=== PATIENT | male | born 1995 | race Hispanic/Latino ===

== ENCOUNTER 2018-01-22 22:21 | Emergency (ER) | payer OTHER ==
[2018-01-22 22:30] VITALS: BP 121/73; PULSE 70; RESP 16; TEMP 97.9; O2SAT 99
--- NOTE | 2018-01-22 23:17 | ED PDOC ---
HPI: Back Time Seen by Provider: 01/22/18 22:31 Chief Complaint (Nursing): Back Pain Chief Complaint (Provider): Back Pain History Per: Patient History/Exam Limitations: no limitations Onset/Duration Of Symptoms: Hrs (since 4pm) Current Symptoms Are (Timing): Still Present Severity: Mild Pain Scale Rating Of: 5 Associated Symptoms: None Exacerbating Factor(s): Movement, Standing Additional Complaint(s): patient is a 22 year old male with no significant past medical history who presents to the ED for evaluation of left lower back pain. 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 Denies radiation of the pain. Patient reports a history of similar pain due to fencing injuries, but states the pain has resolved spontaneously in the past. Patient took no medication for symptoms prior to arrival. Patient denies: saddle anesthesia, recent fever, chills, trauma, falls, abdominal pain, chest pain, N/V/D, incontinence, urinary symptoms. PMD: unknown Past Medical History Reviewed: Historical Data, Nursing Documentation, Vital Signs Vital Signs: Last Vital Signs Temp 97.9 F 01/22/18 22:27 Pulse 70 01/22/18 22:27 Resp 16 01/22/18 22:27 BP 121/73 01/22/18 22:27 Pulse Ox 99 01/22/18 22:27 - Medical History PMH: No Chronic Diseases - Surgical History Surgical History: No Surg Hx - Family History Family History: States: Unknown Family Hx - Social History Current smoker - smoking cessation education provided: No Alcohol: None Drugs: Denies - Home Medications Home Medications: Ambulatory Orders Medication Instructions Recorded Cyclobenzaprine [Cyclobenzaprine 10 mg PO Q8 PRN #12 tab 01/22/18 HCl] Naproxen 500 mg PO BID PRN #20 tab 01/22/18 - Allergies Allergies/Adverse Reactions: Allergies Allergy/AdvReac Type Severity Reaction Status Date / Time No Known Allergies Allergy Verified 01/22/18 22:27 Review of Systems ROS Statement: Except As Marked, All Systems Reviewed And Found Negative Musculoskeletal: Positive for: Back Pain Physical Exam - Reviewed Nursing Documentation Reviewed: Yes Vital Signs Reviewed: Yes - Physical Exam Appears: Positive for: Well, Non-toxic, No Acute Distress Head Exam: Positive for: NORMOCEPHALIC Skin: Positive for: Normal Color, Warm, Dry Eye Exam: Positive for: EOMI, PERRL ENT: Positive for: Other (Mucus membranes moist. Airway patent (-) stridor.) Neck: Positive for: Painless ROM, Supple Cardiovascular/Chest: Positive for: Regular Rate, Rhythm Respiratory: Positive for: Normal Breath Sounds. Negative for: Decreased Breath Sounds, Accessory Muscle Use, Respiratory Distress Gastrointestinal/Abdominal: Positive for: Soft. Negative for: Tenderness, Distended, Guarding Back: Positive for: Other (left paralumbar tenderness (-) spasm. Straight leg raise (-) bilaterally. ). Negative for: L CVA Tenderness, R CVA Tenderness, Vertebral Tenderness Extremity: Positive for: Normal ROM. Negative for: Calf Tenderness Neurologic/Psych: Positive for: Alert, Oriented (x3), Gait (steady in ED). Negative for: Motor/Sensory Deficits - ECG O2 Sat by Pulse Oximetry: 99 (RA) Pulse Ox Interpretation: Normal Medical Decision Making Medical Decision Making: Clinical Impression: Acute back pain/strain Plan: - Toradol 30mg IM - Flexeril 10mg PO (patient is not driving home) - Re-evaluation 2340 On re-evaluation, patient reports improvement of symptoms. On exam, patient remains AAOx3, in no acute distress. On exam, neck is supple, lungs CTA, cardiac RRR, abdomen is soft and non-tender, neuro exam shows no focal findings. VSS, stable for discharge. Diagnostic results d/w the patient in great detail. Dx of acute back pain/ strain d/w the patient. Based on history, exam and diagnostic results plan will be for discharge and outpatient follow up. Advised to follow up with primary care physician in 1-2 days without fail. Advised to take medication as prescribed. Return to the emergency room at any time for any new or worsening symptoms. Patient states he fully agrees with and understands discharge instructions. States that he agrees with the plan and disposition. Verbalized and repeated discharge instructions and plan. I have given the patient opportunity to ask any additional questions. Disposition - Clinical Impression Clinical Impression: Acute back pain, Muscle strain - Patient ED Disposition Is Patient to be Admitted: No Counseled Patient/Family Regarding: Diagnosis, Need For Followup, Rx Given - Disposition Referrals: Boiardo,Nelson A III, MD [Staff Provider] - Disposition: Routine/Home Disposition Time: 23:40 Condition: STABLE Additional Instructions: FOLLOW UP WITH PMD IN 1-2 DAYS FOR FURTHER EVALUATION AND PAIN MANAGEMENT. RETURN TO ED WITH ANY NEW OR WORSENING SYMPTOMS. Prescriptions: Cyclobenzaprine [Cyclobenzaprine HCl] 10 mg PO Q8 PRN #12 tab PRN Reason: Muscle Spasm Naproxen 500 mg PO BID PRN #20 tab PRN Reason: Pain, Moderate (4-7) Instructions: Muscle Strain, Low Back Pain in Adults Forms: [facility] (Fijian), [facility] ED School/Work Excuse Print Language: BARBADIAN - POA Present On Arrival: None
== END 2018-01-23 00:06 | disposition home or self-care (01) ==
LOC: H.ER 22:21
DX: S39.012A Strain of muscle, fascia and tendon of lower back, initial encounter (principal); M54.5 Low back pain
CPT/HCPCS: 96372; J1885